=== PATIENT | male | born 1955 | race Caucasian/White ===

== ENCOUNTER → 2017-07-15 11:39 | Outpatient (CLI) | payer OTHER, SELFPAY ==
[2017-07-15 12:55] LABS: PSA,Total- Diagnostic 3.02 ng/mL (0.0-4.0)
== END ==
PROVIDERS: Family Provider Family Medicine; PCP Family Medicine; Visit Provider Urology
DX: C61 Malignant neoplasm of prostate (principal)
CPT/HCPCS: 36415; 84153

== ENCOUNTER → 2017-09-23 14:47 | Outpatient (CLI) | payer OTHER, SELFPAY ==
[2017-09-23 16:30] LABS: Pathologist Comment May follow
[2017-09-23 17:34] LABS: RBC /Synovial Fluid 0.003 10^6/uL (0); Synovial Fld Mononuclear WBC % 30.1 %; Synovial Fld Polynuclear WBC # 8.516 10^3/ul; Synovial Fld Polynuclear WBC % 69.9 %
[2017-09-23 18:16] LABS: AUTO B FLUID DILUENT BKGD CT WBC <0.1 RBC <0.01 (W<.1,R<.01); Source- Body Fluid SYNOVIAL; Viscosity / Synovial Fluid Sl. Viscous (HIGH)
[2017-09-23 18:17] LABS: Appearance /Synovial Fluid Cloudy (CLEAR); Color / Synovial Fluid Yellow (Pale Yellow); Source / Synovial Fluid R ELBOW
[2017-09-23 18:19] LABS: Body Fluid QC Type(s) BF1Q,BF2Q
[2017-09-23 20:43] LABS: Lymph 11 %; Monocyte /Synovial Fluid 3 %; Neutrophil 86 % (0-25)
[2017-09-24 09:21] LABS: Pathologist Review Reviewed
== END ==
PROVIDERS: Family Provider Family Medicine; PCP Family Medicine; Visit Provider Specialist
DX: M70.31 Other bursitis of elbow, right elbow (principal)
CPT/HCPCS: 87015; 87070; 87075; 87077; 87101; 87116; 87186; 87205; 87206; 89050; 89051; 89060

== ENCOUNTER → 2018-01-13 10:31 | Outpatient (CLI) | payer OTHER, SELFPAY ==
[2018-01-13 11:52] LABS: PSA,Total- Diagnostic 2.68 ng/mL (0.0-4.0)
== END ==
PROVIDERS: Family Provider Family Medicine; PCP Family Medicine; Referring Provider Urology; Visit Provider Urology
DX: C61 Malignant neoplasm of prostate (principal)
CPT/HCPCS: 36415; 84153

== ENCOUNTER → 2019-01-27 | Outpatient (CLI) | payer OTHER, SELFPAY ==
[2019-01-27 17:46] LABS: PSA,Total- Diagnostic 3.13 ng/mL (0.0-4.0)
== END | disposition home or self-care (01) ==
LOC: LAB 16:58
PROVIDERS: Family Provider Family Medicine; PCP Family Medicine; Referring Provider Urology; Visit Provider Urology
DX: C61 Malignant neoplasm of prostate (principal)
CPT/HCPCS: 36415; 84153

== ENCOUNTER → 2019-07-14 15:11 | Outpatient (CLI) | payer OTHER, SELFPAY ==
[2019-07-14 16:01] LABS: PSA,Total- Diagnostic 2.55 ng/mL (0.0-4.0)
== END ==
PROVIDERS: Family Provider Family Medicine; PCP Family Medicine; Referring Provider Urology; Visit Provider Urology
DX: C61 Malignant neoplasm of prostate (principal)
CPT/HCPCS: 36415; 84153

== ENCOUNTER → 2020-01-19 16:12 | Outpatient (CLI) | payer OTHER, SELFPAY ==
[2020-01-19 17:44] LABS: PSA,Total- Diagnostic 2.82 ng/mL (0.0-4.0)
== END ==
PROVIDERS: PCP Family Medicine; Referring Provider Urology; Visit Provider Urology
DX: C61 Malignant neoplasm of prostate (principal)
CPT/HCPCS: 36415; 84153

== ENCOUNTER 2020-06-09 00:25 | Outpatient (RCR) | payer OTHER, SELFPAY ==
[2020-06-09] MEDS: COVID-19 VACC, MRNA(PFIZER)/PF 30 MCG/0.3 ML SYRINGE IM (17:21)
[2020-06-30] MEDS: COVID-19 VACC, MRNA(PFIZER)/PF 30 MCG/0.3 ML SYRINGE IM (16:51)
== END 2020-06-30 23:59 | disposition home or self-care (01) ==
LOC: IMMUN 00:25
PROVIDERS: PCP Family Medicine; Visit Provider Family Medicine
DX: Z23 Encounter for immunization (principal)
CPT/HCPCS: 0001A; 0002A; 91300

== ENCOUNTER → 2020-07-19 16:16 | Outpatient (CLI) | payer MEDICARE, OTHER, SELFPAY ==
[2020-07-19 18:17] LABS: PSA,Total- Diagnostic 2.96 ng/mL (0.0-4.0)
== END ==
PROVIDERS: PCP Family Medicine; Referring Provider Urology; Visit Provider Urology
DX: C61 Malignant neoplasm of prostate (principal)
CPT/HCPCS: 36415; 84153

== ENCOUNTER → 2022-06-15 | Outpatient (CLI) | payer MEDICARE, OTHER, SELFPAY ==
--- NOTE | 2022-06-15 07:34 | MRI_ITS ---
MR Prostate WO/W Contrast 06/15/2022 7:56 AM COMPARISON: None CLINICAL HISTORY: 67-year-old male with known prostate cancer TECHNIQUE: Standard prostate MR protocol was used before and after administration of 17 cc of IV gadolinium ([place]). FINDINGS: Prostate volume: 45 cc Length of membranous urethra: 23 mm Post-biopsy hemorrhage: None Multiparametric MR evaluation: Heterogeneous appearance of the central gland is consistent with benign prostatic hyperplasia. Lesion 1: LOCATION - there is a 1.5 x 1.5 x 1.2 cm mildly T2 hypointense ill-defined area in the left posterior lateral transitional zone at mid gland. It is mildly bright on DWI and mildly dark on ADC map. T2 - 3 DWI - 3 DCE - inconclusive Overall PI-RADS v2 score = 3 Capsular margin and neurovascular bundle: Intact Seminal vesicles: Not involved Lymph nodes: No lymphadenopathy in the field of view. Bones: No suspicious lesions in the field of view. MRI/Pelvis W/WO Contrast IMPRESSION: -1.5 cm PI-RADS 3 lesion in the left posterolateral TZ at mid gland. - No evidence of macroscopic extracapsular extension. - No evidence of seminal vesicle invasion. - No lymphadenopathy. - No suspicious bone lesions. Electronically Signed: Morro Orellana MD at 22:34 EST ,
[2022-06-15 08:11] LABS: EGFR FINGERSTICK > 60.0000 mL/min (>60)
== END | disposition home or self-care (01) ==
LOC: MRI 07:31
PROVIDERS: Referring Provider Urology; Visit Provider Urology
DX: C61 Malignant neoplasm of prostate (principal)
CPT/HCPCS: 72197; A9575

== ENCOUNTER → 2022-08-02 | Outpatient (CLI) | payer MEDICARE, OTHER, SELFPAY ==
--- NOTE | 2022-08-02 08:00 | PROSBIL_PTH ---
PATIENT: NIKITA CHIU LOC: [facility] U#:[id number] AGE/SX: 67/M ROOM: RE08/02/[address]: Dr. Erik Montalvo MD : 1955 BED: DIS: 08/02/2022 SPEC #: [id number] RECD: 08/02/22 16:17 STATUS: RANGEL REMaricarmen #: [id number] PATY: 08/02/22 08:[address]: Erik Montalvo DEPT: SURGICAL PATHOLOGY RECD BY: Christine Ramírez ENTERED: 08/03/22 08:46 SP TYPE: PROST BX FRANKO DR: Montserrat Primary Care Phys Tissues: A - PROSTATE RIGHT B - PROSTATE RIGHT C - PROSTATE RIGHT D - PROSTATE LEFT E - PROSTATE LEFT F - PROSTATE LEFT Procedures: PROSTATE BX HEADER OPERATION: Prostate biopsy PRE-OP DIAGNOSIS: Elevated PSA TISSUE SUBMITTED: A - Right apex, B - Right mid, C - Right base, D - Left apex, E - Left mid, F - Left base MICROSCOPIC DIAGNOSIS A. Right prostate, apex, core biopsy: Mild chronic inflammation. B. Right prostate, mid, core biopsy: Mild chronic inflammation. C. Right prostate, base, core biopsy: Focal glandular atrophy. D. Left prostate, apex, core biopsy: Focal glandular atrophy. E. Left prostate, mid, core biopsy: Mild chronic inflammation with focal acute inflammation. Glandular atrophy. F. Left prostate, base, core biopsy: Mild chronic inflammation and focal glandular atrophy. AM:vamsi 08/06/2022 MICROSCOPIC DESCRIPTION Slides are reviewed. GROSS DESCRIPTION A - Received is one container designated prostate, right apex. The specimen consists of two elongated fragments of light flores-white soft tissue measuring 1.5 and 1.8 cm in length and 0.1 cm in diameter. The specimen is totally submitted in one cassette. B - Received is one container designated prostate, right mid. The specimen consists of two elongated fragments of light folres-white soft tissue each measuring 1.7 cm in length and 0.1 cm in diameter. The specimen is totally submitted in one cassette. C - Received is one container designated prostate, right base. The specimen consists of two elongated fragments of light flores-white soft tissue each measuring 1.2 cm in length and 0.1 cm in diameter. The specimen is totally submitted in one cassette. D - Received is one container designated prostate, left apex. The specimen consists of two elongated fragments of light flores-white soft tissue measuring 0.8 and 1.5 cm in length and 0.1 cm in diameter. The specimen is totally submitted in one cassette. E - Received is one container designated prostate, left mid. The specimen consists of two elongated fragments of light flores-white soft tissue measuring 1.3 and 1.7 cm in length and 0.1 cm in diameter. The specimen is totally submitted in one cassette. F - Received is one container designated prostate, left base. The specimen consists of two elongated fragments of light flores-white soft tissue measuring 0.8 and 1.3 cm in length and 0.1 cm in diameter. The specimen is totally submitted in one cassette. / SJ:rg 08/03/2022 TC:3 CPT: G0146
== END | disposition home or self-care (01) ==
LOC: LABSPEC 16:22
PROVIDERS: Referring Provider Urology; Visit Provider Urology
DX: R97.20 Elevated prostate specific antigen [PSA] (principal)
CPT/HCPCS: 88305; G0416

== ENCOUNTER → 2024-01-10 | Outpatient (CLI) | payer MEDICARE, OTHER, SELFPAY ==
[2024-01-10 10:25] LABS: Absolute Lymphocyte Count 2.27 X10^3/uL (0.83-4.51); Absolute Neutrophil Count 3.6 X10^3/uL (2.0-7.7); Basophil# 0.03 X10^3/uL; Basophil% 0.4 % (0-1); Eosinophil# 0.19 X10^3/uL; Eosinophils% 2.7 % (0-5); Hematocrit 47.7 % (40-54); Hemoglobin 15.6 g/dL (13.0-16.5); Lymphocyte # 2.27 X10^3/ul (0.83-4.51); Lymphocyte % 32.7 % (19-41); Mean Corp Hgb Conc 32.7 g/dL (32-36); Mean Corpuscular Hgb 29.9 pg (27.0-32.0); Mean Corpuscular Volume 91.6 fL (80-94); Mean Platelet Vol. 9.9 fl (6.2-12.0); Monocyte% 11.5 % (0-10); NRBC Flagged by Analyzer 0 % (0-5); Neutrophil # 3.63 X10^3/uL (2.7-7.7); Neutrophil % 52.3 % (47-70); Platelet Count 254 K/mm3 (150-450); RBC Distribution Width CV 12.7 % (11.6-14.6); RBC Distribution Width SD 42.1 fl (35.1-43.9); Red Blood Count 5.21 M/mm3 (4.6-6.2)
[2024-01-10 10:53] LABS: AST(SGOT) 17 U/L (15-37); Alanine Aminotransfer ALT/SGPT 30 U/L (16-61); Albumin, Serum 4.2 g/dL (3.2-5.0); Alkaline Phosphatase 86 U/L (45-117); Bilirubin, Direct 0.21 mg/dL (0.00-0.30); Globulin 3.2 g/dL (2.2-4.2); Protein, Total 7.4 g/dL (6.4-8.2)
[2024-01-14 19:07] LABS: QNTFERON TB Mitogen Value > 10.00 IU/mL (.); QNTFERON TB Nil Value 0 IU/mL (.); QNTFERON TB1+ Ag Value 0 IU/mL (.); QNTFERON TB2+ Ag Value 0 IU/mL (.); QNTIFERON TB Positive Criteria Negative (Negative)
== END | disposition home or self-care (01) ==
LOC: MTLAB 09:11
PROVIDERS: Referring Provider Dermatology; Visit Provider Dermatology
DX: Z79.899 Other long term (current) drug therapy (principal); L40.0 Psoriasis vulgaris
CPT/HCPCS: 36415; 80076; 85025; 86480